=== PATIENT | female | born 1945 | race Two or more races ===

== ENCOUNTER 2017-02-22 11:31 | Outpatient (CLI) | payer MEDICARE ==
[~2017-02-22 11:31] MED LIST: CALC-36 PO; CALC-838 PO; HYDR25CA PO; LEVO5DRO15 OP; LEVO88TA5 PO; MULT1CAP34 PO; OMEG1CAP PO; PROC10TA PO; [UNRECOGNIZED DRUG - CODE] PO
== END 2017-02-22 23:59 | disposition home or self-care (01) ==
LOC: RAD 11:31
PROVIDERS: ATTEND Family Medicine
DX: M16.11 Unilateral primary osteoarthritis, right hip (principal); M85.88 Other specified disorders of bone density and structure, other site
CPT/HCPCS: 73502

== ENCOUNTER 2017-03-28 10:02 | Outpatient (CLI) | payer MEDICARE | END 2017-03-28 23:59 | disposition home or self-care (01) | LOC: CT 10:02 | PROVIDERS: ATTEND Family Medicine | DX: Z12.2 Encounter for screening for malignant neoplasm of respiratory organs (principal); I25.10 Atherosclerotic heart disease of native coronary artery without angina pectoris; R91.1 Solitary pulmonary nodule; I70.0 Atherosclerosis of aorta; Z87.891 Personal history of nicotine dependence | CPT/HCPCS: 71250-TC ==

== ENCOUNTER 2017-07-21 15:33 | Outpatient (CLI) | payer MEDICARE | END 2017-07-21 23:59 | disposition home or self-care (01) | LOC: RAD 15:33 | PROVIDERS: ATTEND Family Medicine | DX: Z01.818 Encounter for other preprocedural examination (principal); I70.0 Atherosclerosis of aorta; M47.894 Other spondylosis, thoracic region | CPT/HCPCS: 71046 ==

== ENCOUNTER 2017-10-18 14:40 | Outpatient (CLI) | payer MEDICARE | END 2017-10-18 23:59 | disposition home or self-care (01) | LOC: RAD 14:40 | PROVIDERS: ATTEND Family Medicine | DX: M17.12 Unilateral primary osteoarthritis, left knee (principal); M85.862 Other specified disorders of bone density and structure, left lower leg | CPT/HCPCS: 73562 ==

== ENCOUNTER 2017-11-24 11:10 | Outpatient (CLI) | payer MEDICARE ==
[~2017-11-24 11:10] MED LIST changes: -PROC10TA PO; +PROC10TA13 PO
== END 2017-11-24 23:59 | disposition home or self-care (01) ==
LOC: RAD 11:10
PROVIDERS: ATTEND Family Medicine
DX: M77.32 Calcaneal spur, left foot (principal)
CPT/HCPCS: 73610-TC; 73630-TC

== ENCOUNTER 2020-04-03 12:12 | Outpatient (CLI) | payer MEDICARE | END 2020-04-03 23:59 | disposition home or self-care (01) | LOC: RAD 12:12 | PROVIDERS: ATTEND Family Medicine | DX: Z01.818 Encounter for other preprocedural examination (principal); I70.0 Atherosclerosis of aorta | CPT/HCPCS: 71046 ==